=== PATIENT | female | born 1990 | race African-American/Black ===

== ENCOUNTER 2022-07-13 13:40 | Inpatient (IN) ==
[2022-07-13] MEDS ORDERED: LIDOCAINE 1% LOCAL 20 ML VIAL INFIL PRN (13:52)
[2022-07-13] MEDS ORDERED: OXYTOCIN 30 UNITS/500 ML BAG IV PRN ×2 (13:52)
[2022-07-13] MEDS ORDERED: PENICILLIN G POTASSIUM 6 MU in DEXTROSE 5% 250 ML IV STA (13:52)
--- NOTE | 2022-07-13 13:58 | History & Physical Report ---
Date of Service July 13, 2022 Assessment & Plan (1) SROM (spontaneous rupture of membranes): Plan: Counseled on recommendation for pitocin vs expt mgmt for a few hours to see if labor develops. Risks/benefits reviewed. Patient does not want to augment until FOB arrives from [place] where he is currently located. GBS positive noted, will start PCN. GDM has been diet controlled. May want epidural, will let us know when/if she is ready to request one. History of Present Illness Chief Complaint: 32yo P1 at 38w2d with SROM at 0730 this AM, arrives to L&D via ER with her MIL. Onset of contractions in the last hour but not organized or painful yet. Good FM, no VB, fluid is clear. GBS positive known. Also h/o MJ use and smoking, GBS diet controlled, last growth US reviewed. FOB in [place] and she declines intervention to augment her contractions until he arrives. Primary Care Provider: NO PCP Allergies Allergy/AdvReac Type Severity Reaction Status Date / Time No Known Allergies Allergy Verified 07/05/22 16:00 Home Medications Medication Instructions Recorded Confirmed Type prenat.vits,jerrell,hdf-plaf-sxtoa 1 tab PO DAILY #90 tabs 02/24/22 07/05/22 Rx sertraline 25 mg tablet (Zoloft) 25 mg PO DAILY #30 tabs 02/24/22 07/05/22 Rx acetone (urine) test (Ketone Urine #50 ea 03/25/22 07/05/22 Rx Test strips) blood sugar diagnostic (OneTouch #150 ea 03/25/22 07/05/22 Rx Verio test strips) blood-glucose meter (OneTouch #1 ea 03/25/22 07/05/22 Rx Verio Reflect Meter) lancets 33 gauge (OneTouch Delica #150 ea 03/25/22 07/05/22 Rx Lancets) metronidazole 0.75 % (37.5 mg/5 1 appful vaginal DAILY 5 days #70 03/26/22 07/05/22 Rx gram) vaginal gel grams ondansetron HCl 4 mg tablet 4 mg PO Q6H PRN nausea and 04/14/22 07/05/22 Rx vomiting #20 tabs clotrimazole 1 % vaginal cream 1 appful vaginal ONCE 7 days #45 06/21/22 07/05/22 Rx grams Patient History Medical History (Updated 07/13/22 @ 13:57 by Melita Steele MD) Depression with anxiety Miscarriage Status post elective Surgical History (Updated 02/22/22 @ 14:29 by Jelly Zuniga) S/P wisdom tooth extraction Family History (Updated 02/22/22 @ 14:19 by Jelly Zuniga) Mother Diabetes Grandmother (Maternal) Heart disease Denies family history of Ovarian cancer Breast cancer Colorectal cancer Social History (Updated 02/22/22 @ 14:20 by Jelly Zuniga) Smoking Status: Current some day smoker Hx Substance Use: Yes marital status: Single marital status details: dominique Hansen (37) [phone] Current Living Situation: Family and Significant Other Current Living Situation Comment: lives with fob, son, no pets current occupational status: unemployed Physical Exam Genitourinary: FHT Cat 1, [place] irregular / rare ctx, Cvx 1/80/-2/soft/post, LOF clear with +nitrazine Results & Data ([facility]) Vital Signs (Past 12 Hours) Vital Signs Pulse BP 07/13/22 13:50 113 H 136/69 Coding Level of Care Code None Diagnoses SROM (spontaneous rupture of membranes)
[2022-07-13 14:41] LABS: Hematocrit (blood only) 33.2 % (37.0-47.0); Hemoglobin 11.3 g/dl (12.0-16.0); Mean Corpuscular Hemoglobin 29.4 pg (25.0-34.0); Mean Corpuscular Volume 86.2 fL (80.0-100.0); Mean Platelet Volume 10.9 fL (9.4-12.4); Platelet Count 243 K/uL (130-400); RDW Coefficient of Variation 13.2 % (11.5-14.5); RDW Standard Deviation 41.1 fL (36.4-46.3); Red Blood Count 3.85 M/uL (4.20-5.40); White Blood Count 13.44 K/ul (4.8-10.8)
[2022-07-13] MEDS: LACTATED RINGER'S 1,000 ML IV PRN ×2 (14:58→19:36)
[2022-07-13 15:22] LABS: Amphetamines+Metham, Urine Neg (Neg); Barbiturates, Urine Neg (Neg); Benzodiazepine, Urine Neg (Neg); Cocaine, Urine Neg (Neg); MDMA (Ecstacy), Urine Neg (Neg); Methadone, Urine Neg (Neg); Opiate, Urine Neg (Neg); Phencyclidine, Urine Neg (Neg)
[2022-07-13] MEDS: PENICILLIN G POTASSIUM 3 MU in DEXTROSE 5% 100 ML IV PRN ×2 (19:03→22:59)
[2022-07-13] MEDS ORDERED: ePHEDrine sulfate 50 MG/ML AMP ONE (19:11)
[2022-07-13] MEDS ORDERED: BUPIVACAINE 0.25% 30 ML VIAL ONE (19:11)
[2022-07-13] MEDS ORDERED: SODIUM CHLORIDE 0.9% INJ 10 ML VIAL ONE (19:11)
[2022-07-13] MEDS ORDERED: LIDOCAINE 2%/EPINEPHRINE 1:200,000 20 ML SDV ONE (19:11)
[2022-07-13] MEDS ORDERED: fentaNYL citrate 100 MCG/2 ML VIAL ONE (19:11)
[2022-07-13] MEDS ORDERED: fentaNYL 2MCG/ML ROPIVACAINE 1.25MG/ML 100 ML BAG EPI ONE (19:12)
--- NOTE | 2022-07-13 20:16 | Anesthesiology Consultation ---
Date of Service July 13, 2022 Assessment & Plan (1) Encounter for pre-operative examination: Chart Review Chart Review: Acceptable Risk for Labor Epidural History Height/Weight Height: 5 ft 2 in Weight: 93.44 kg Allergies Allergy/AdvReac Type Severity Reaction Status Date / Time No Known Allergies Allergy Verified 07/05/22 16:00 Medications Home Medications Medication Instructions Recorded Confirmed Last Taken prenat.vits,jerrell,wad-kukk-havtv 1 tab PO DAILY #90 tabs 02/24/22 07/05/22 Unknown sertraline 25 mg tablet (Zoloft) 25 mg PO DAILY #30 tabs 02/24/22 07/05/22 Unknown acetone (urine) test (Ketone Urine #50 ea 03/25/22 07/05/22 Unknown Test strips) blood sugar diagnostic (OneTouch #150 ea 03/25/22 07/05/22 Unknown Verio test strips) blood-glucose meter (OneTouch #1 ea 03/25/22 07/05/22 Unknown Verio Reflect Meter) lancets 33 gauge (OneTouch Delica #150 ea 03/25/22 07/05/22 Unknown Lancets) metronidazole 0.75 % (37.5 mg/5 1 appful vaginal DAILY 5 days #70 03/26/22 07/05/22 Unknown gram) vaginal gel grams ondansetron HCl 4 mg tablet 4 mg PO Q6H PRN nausea and 04/14/22 07/05/22 Unknown vomiting #20 tabs clotrimazole 1 % vaginal cream 1 appful vaginal ONCE 7 days #45 06/21/22 07/05/22 Unknown grams Active Medications Generic Name Dose Route Start Last Admin Trade Name Freq PRN Reason Stop Dose Admin Penicillin G Potassium 3 mu/ 106 mls @ 100 mls/hr 07/13/22 16:52 07/13/22 19:03 Dextrose IV 07/23/22 16:51 100 mls/hr Q4H PRN Administration GBS(+) Until Delivery Lactated Ringer's 1,000 mls @ 125 mls/hr 07/13/22 13:52 07/13/22 19:36 Lr IV 07/15/22 13:51 125 mls/hr .Q8H PRN Administration L&D Protocol Protocol Oxytocin 30 units in 500 mls @ 5 mls/hr 07/13/22 13:52 07/13/22 18:15 Pitocin IV 07/15/22 13:51 0.3 units/hr .Q24H PRN 5 mls/hr Labor Induction/Augmentation Titration Protocol 0.3 UNITS/HR Past Medical History Medical History Depression with anxiety Miscarriage Status post elective Past Family History Family History Mother Diabetes Grandmother (Maternal) Heart disease Denies family history of Ovarian cancer Breast cancer Colorectal cancer Past Surgical History Surgical History S/P wisdom tooth extraction Social History Smoking Status: Current every day smoker tobacco type: cigarettes Smoking cigarettes per day: 4 Hx Alcohol Use: No Hx Substance Use: Yes substance use type: former substance user and marijuana Physical Exam Vital Signs Last Vital Signs Temp 36.7 C 07/13/22 19:38 Pulse 92 H 07/13/22 20:11 Resp 18 07/13/22 20:00 BP 115/66 07/13/22 19:06 Pulse Ox 97 07/13/22 20:11 O2 Del Method Room Air 07/13/22 19:38 Testing Laboratory Results 07/13/22 14:10 Blood Type B Positive 07/13/22 14:10 Antibody Screen NEGATIVE 07/13/22 14:10 07/13/22 15:31 POC Glucose 128 H
[2022-07-13] MEDS ORDERED: ONDANSETRON INJ 2 MG/ML 2 ML VIAL IV PRN (20:39)
[2022-07-13] MEDS ORDERED: ePHEDrine sulfate 50 MG/ML AMP IV PRN (20:39)
[2022-07-13] MEDS ORDERED: fentaNYL 2MCG/ML ROPIVACAINE 1.25MG/ML 100 ML BAG EPI PRN (20:39)
[2022-07-13] MEDS ORDERED: NALOXONE HCL 1 MG in SODIUM CHLORIDE 0.9% 1000ML 1,000 ML IV PRN (20:39)
[2022-07-13] MEDS ORDERED: NALOXONE HCL 0.4 MG/1 ML VIAL/CARP IV PRN (20:39)
--- NOTE | 2022-07-13 23:22 | Delivery Summary ---
Vaginal Delivery Summary Date of Service July 13, 2022 Vaginal Delivery Summary DIAGNOSES: 1. Peter intrauterine at 38w2d gestation. 2. PROM and Induction of Labor. 3. Group B Streptococcus Positive, treated. 4. Diet-controlled gestational diabetes PROCEDURE: Spontaneous vaginal delivery without laceration. SURGEON: Melita Steele MD. SEAM RUBBING MACHINE OPERATOR: None. ESTIMATED BLOOD LOSS: 300 mL. COMPLICATIONS: None. PLACENTA: Spontaneous and intact with a 3-vessel cord. DISPOSITION: Stable to labor and delivery. DESCRIPTION: The patient pushed well and brought the head to in DOA position. The 's head was allowed to deliver with contraction force and no further active pushing, with the perineum protected during this time. There was one tight nuchal cord, reduced at the perineum, while the patient continued delivering as the baby came rather quickly without much of a pause after the head delivered. The shoulders and body delivered without any difficulty, and the was placed on the maternal abdomen. It was vigorous and moving all extremities, and making respiratory efforts. The cord was doubly clamped by the MD and then cut by the FOB. The placenta delivered spontaneously and was noted to be intact and with a 3VC. The cervix, vagina and perineum were examined and were found to be without defect requiring repair. The fundus was firm and lochia minimal immediately after delivery. The bladder was emptied of approxi mately 300cc of clear yellow urine via sterile straight catheterization. [facility] Vaginal Delivery Charge Vaginal Delivery Codes: 92221 global code for the antepartum, delivery, and post-
[2022-07-14] MEDS ORDERED: bisacodyL 10 MG SUPP PR PRN (00:13)
[2022-07-14] MEDS ORDERED: DIPHTHERIA/TETANUS/PERTUSSIS 0.5mL SYR/VIAL (Age 7+yrs) IM ONE (00:13)
[2022-07-14] MEDS ORDERED: HYDROCORTISONE ACETATE 25 MG SUPP PR PRN (00:13)
[2022-07-14] MEDS ORDERED: oxyCODONE/ACETAMINOPHEN 5mg/325mg TAB PO PRN (00:13)
[2022-07-14] MEDS ORDERED: BENZOCAINE 20% AER SPR 82.5 GM CAN EXT PRN (00:13)
[2022-07-14] MEDS ORDERED: ACETAMINOPHEN 325 MG TAB PO PRN (00:13)
[2022-07-14] MEDS: IBUPROFEN 600 MG TAB PO PRN ×3 (01:17→18:15)
--- NOTE | 2022-07-14 05:43 | Obstetrical Progress Note ---
Date of Service <Misty Murdock MD - Last Filed: 07/14/22 06:24> July 14, 2022 Assessment & Plan <Misty Murdock MD - Last Filed: 07/14/22 06:24> (1) care following vaginal delivery: 32 y/o at 38w2d presented with SROM now PPD1 after . GBS pos - treated during labor. RI, Rh pos. Tolerating PO. Satisfactory post progress. Encourage ambulation. c/b GDM - diet controlled c/b MJ use and current smoking <Melita Steele MD - Last Filed: 07/14/22 07:17> (1) care following vaginal delivery: Plan Resident Physician Supervision Note: I interviewed and examined the patient. Discussed with Dr. Murdock and agree with findings and plan as documented in the note. Any exceptions or clarifications are listed here: [ ] Documented By: Melita Steele MD, FACOG Subjective <Misty Murdock MD - Last Filed: 07/14/22 06:24> Ambulation: ambulating normally Voiding: no voiding problems Passing Gas:: Yes Diet Tolerance:: regular diet Lochia:: Small Feeding Type:: breast feeding Physical Exam <Misty Murdock MD - Last Filed: 07/14/22 06:24> Gen: well appearing female in NAD HEENT: AT NC Resp: no increased work of breathing CV: clinically well perfused : uterus firm non-tender at the level of the umbilicus Psych: appropriate mood and affect Neuro: alert and oriented Results & Data ([facility]) <Misty Murdock MD - Last Filed: 07/14/22 06:24> Vital Signs (Past 12 Hours) Vital Signs Temp Pulse Pulse Resp BP BP Pulse Ox 07/14/22 02:50 36.1 C L 76 18 107/68 07/14/22 00:05 18 07/13/22 23:50 18 07/13/22 23:35 18 07/14/22 01:20 18 07/14/22 00:50 18 07/14/22 00:20 18 07/13/22 23:20 18 07/13/22 19:38 36.7 C 18 07/13/22 19:38 07/14/22 01:19 88 123/75 07/14/22 01:04 71 117/68 07/14/22 00:49 71 111/67 07/14/22 00:34 69 119/68 07/14/22 00:19 85 126/85 07/14/22 00:04 70 125/79 07/13/22 23:07 18 07/13/22 23:07 18 07/13/22 22:45 18 07/13/22 22:45 18 07/13/22 22:30 18 07/13/22 22:30 18 07/13/22 22:00 18 07/13/22 22:00 18 07/13/22 22:30 18 07/13/22 22:30 18 07/13/22 23:49 70 07/13/22 23:49 130/79 07/13/22 22:50 36.5 C 07/13/22 23:34 77 07/13/22 23:34 118/74 07/13/22 23:19 80 07/13/22 23:19 125/76 07/13/22 23:14 69 07/13/22 23:14 135/78 07/13/22 23:06 96 07/13/22 23:07 93 07/13/22 23:06 87 07/13/22 23:07 88 07/13/22 23:01 99 07/13/22 23:01 86 07/13/22 22:58 77 07/13/22 22:58 123/76 07/13/22 22:56 99 07/13/22 22:56 81 07/13/22 22:51 100 07/13/22 22:51 73 07/13/22 22:46 100 07/13/22 22:46 75 07/13/22 22:44 62 07/13/22 22:44 112/73 07/13/22 22:41 100 07/13/22 22:41 81 07/13/22 22:36 99 07/13/22 22:36 82 07/13/22 22:31 99 07/13/22 22:31 74 07/13/22 22:29 73 07/13/22 22:29 120/74 07/13/22 22:26 99 07/13/22 22:26 87 07/13/22 22:21 100 07/13/22 22:21 80 07/13/22 22:16 98 07/13/22 22:16 81 07/13/22 22:15 80 07/13/22 22:15 106/74 07/13/22 22:11 99 07/13/22 22:11 81 07/13/22 22:06 99 07/13/22 22:06 81 07/13/22 22:01 98 07/13/22 22:01 72 07/13/22 22:00 75 07/13/22 22:00 112/71 07/13/22 21:56 98 07/13/22 21:56 84 07/13/22 21:51 99 07/13/22 21:51 74 07/13/22 21:46 98 07/13/22 21:46 76 07/13/22 21:43 68 07/13/22 21:43 105/59 L 07/13/22 21:30 18 07/13/22 21:30 18 07/13/22 21:41 97 07/13/22 21:41 68 07/13/22 21:36 97 07/13/22 21:36 66 07/13/22 21:31 98 07/13/22 21:31 65 07/13/22 21:28 76 07/13/22 21:28 100/59 L 07/13/22 21:26 97 07/13/22 21:26 67 07/13/22 21:21 97 07/13/22 21:21 65 07/13/22 21:00 18 07/13/22 21:00 18 07/13/22 21:16 98 07/13/22 21:16 67 07/13/22 21:13 65 07/13/22 21:13 104/60 07/13/22 21:11 98 07/13/22 21:11 72 07/13/22 21:06 98 07/13/22 21:06 76 07/13/22 21:01 98 07/13/22 21:01 78 07/13/22 20:40 18 07/13/22 20:40 36.5 C 18 07/13/22 20:58 83 07/13/22 20:58 109/57 L 07/13/22 20:56 99 07/13/22 20:56 75 07/13/22 20:51 97 07/13/22 20:51 80 07/13/22 20:46 98 07/13/22 20:46 80 07/13/22 20:42 84 07/13/22 20:42 118/55 L 07/13/22 20:41 96 07/13/22 20:41 91 H 07/13/22 20:41 125/57 L 07/13/22 20:38 106 H 07/13/22 20:38 132/62 07/13/22 20:36 98 07/13/22 20:36 75 07/13/22 20:36 103/57 L 07/13/22 20:35 82 07/13/22 20:35 122/64 07/13/22 20:31 99 07/13/22 20:31 88 07/13/22 20:30 94 H 07/13/22 20:30 112/76 07/13/22 20:28 87 07/13/22 20:28 132/87 07/13/22 20:26 99 07/13/22 20:26 90 07/13/22 20:21 100 07/13/22 20:21 104 H 07/13/22 20:16 99 07/13/22 20:16 91 H 07/13/22 20:11 97 07/13/22 20:11 92 H 07/13/22 20:00 18 07/13/22 20:00 18 07/13/22 20:06 97 07/13/22 20:06 88 07/13/22 20:01 97 07/13/22 20:01 84 07/13/22 19:56 97 07/13/22 19:56 95 H 07/13/22 19:51 97 07/13/22 19:51 89 07/13/22 19:30 18 07/13/22 19:30 18 07/13/22 19:46 97 07/13/22 19:46 94 H 07/13/22 19:41 97 07/13/22 19:41 102 H 07/13/22 19:36 95 07/13/22 19:36 101 H 07/13/22 19:31 96 07/13/22 19:31 80 07/13/22 19:06 20 07/13/22 19:06 36.7 C 20 07/13/22 18:50 20 07/13/22 18:50 20 07/13/22 19:06 89 07/13/22 19:06 115/66 07/13/22 18:30 20 07/13/22 18:30 20 07/13/22 18:00 18 07/13/22 18:00 18 O2 Del Method 07/14/22 02:50 Room Air 07/14/22 00:05 07/13/22 23:50 07/13/22 23:35 07/14/22 01:20 07/14/22 00:50 07/14/22 00:20 07/13/22 23:20 07/13/22 19:38 07/13/22 19:38 Room Air 07/14/22 01:19 07/14/22 01:04 07/14/22 00:49 07/14/22 00:34 07/14/22 00:19 07/14/22 00:04 07/13/22 23:07 07/13/22 23:07 07/13/22 22:45 07/13/22 22:45 07/13/22 22:30 07/13/22 22:30 07/13/22 22:00 07/13/22 22:00 07/13/22 22:30 07/13/22 22:30 07/13/22 23:49 07/13/22 23:49 07/13/22 22:50 07/13/22 23:34 07/13/22 23:34 07/13/22 23:19 07/13/22 23:19 07/13/22 23:14 07/13/22 23:14 07/13/22 23:06 07/13/22 23:07 07/13/22 23:06 07/13/22 23:07 07/13/22 23:01 07/13/22 23:01 07/13/22 22:58 07/13/22 22:58 07/13/22 22:56 07/13/22 22:56 07/13/22 22:51 07/13/22 22:51 07/13/22 22:46 07/13/22 22:46 07/13/22 22:44 07/13/22 22:44 07/13/22 22:41 07/13/22 22:41 07/13/22 22:36 07/13/22 22:36 07/13/22 22:31 07/13/22 22:31 07/13/22 22:29 07/13/22 22:29 07/13/22 22:26 07/13/22 22:26 07/13/22 22:21 07/13/22 22:21 07/13/22 22:16 07/13/22 22:16 07/13/22 22:15 07/13/22 22:15 07/13/22 22:11 07/13/22 22:11 07/13/22 22:06 07/13/22 22:06 07/13/22 22:01 07/13/22 22:01 07/13/22 22:00 07/13/22 22:00 07/13/22 21:56 07/13/22 21:56 07/13/22 21:51 07/13/22 21:51 07/13/22 21:46 07/13/22 21:46 07/13/22 21:43 07/13/22 21:43 07/13/22 21:30 07/13/22 21:30 07/13/22 21:41 07/13/22 21:41 07/13/22 21:36 07/13/22 21:36 07/13/22 21:31 07/13/22 21:31 07/13/22 21:28 07/13/22 21:28 07/13/22 21:26 07/13/22 21:26 07/13/22 21:21 07/13/22 21:21 07/13/22 21:00 07/13/22 21:00 07/13/22 21:16 07/13/22 21:16 07/13/22 21:13 07/13/22 21:13 07/13/22 21:11 07/13/22 21:11 07/13/22 21:06 07/13/22 21:06 07/13/22 21:01 07/13/22 21:01 07/13/22 20:40 07/13/22 20:40 07/13/22 20:58 07/13/22 20:58 07/13/22 20:56 07/13/22 20:56 07/13/22 20:51 07/13/22 20:51 07/13/22 20:46 07/13/22 20:46 07/13/22 20:42 07/13/22 20:42 07/13/22 20:41 07/13/22 20:41 07/13/22 20:41 07/13/22 20:38 07/13/22 20:38 07/13/22 20:36 07/13/22 20:36 07/13/22 20:36 07/13/22 20:35 07/13/22 20:35 07/13/22 20:31 07/13/22 20:31 07/13/22 20:30 07/13/22 20:30 07/13/22 20:28 07/13/22 20:28 07/13/22 20:26 07/13/22 20:26 07/13/22 20:21 07/13/22 20:21 07/13/22 20:16 07/13/22 20:16 07/13/22 20:11 07/13/22 20:11 07/13/22 20:00 07/13/22 20:00 07/13/22 20:06 07/13/22 20:06 07/13/22 20:01 07/13/22 20:01 07/13/22 19:56 07/13/22 19:56 07/13/22 19:51 07/13/22 19:51 07/13/22 19:30 07/13/22 19:30 07/13/22 19:46 07/13/22 19:46 07/13/22 19:41 07/13/22 19:41 07/13/22 19:36 07/13/22 19:36 07/13/22 19:31 07/13/22 19:31 07/13/22 19:06 07/13/22 19:06 07/13/22 18:50 07/13/22 18:50 07/13/22 19:06 07/13/22 19:06 07/13/22 18:30 07/13/22 18:30 07/13/22 18:00 07/13/22 18:00 Laboratory Results 07/13/22 14:10 Resident Activity Tracking <Misty Murdock MD - Last Filed: 07/14/22 06:24> Resident Involvement: Resident Care Provided Care Provided: OB Delivery
[2022-07-14 07:11] LABS: Hematocrit (blood only) 32.2 % (37.0-47.0); Hemoglobin 10.8 g/dl (12.0-16.0); Mean Corpuscular Hemoglobin 28.9 pg (25.0-34.0); Mean Corpuscular Hgb Conc 33.5 g/dL (32.0-36.0); Mean Corpuscular Volume 86.1 fL (80.0-100.0); Mean Platelet Volume 10.7 fL (9.4-12.4); Platelet Count 217 K/uL (130-400); RDW Coefficient of Variation 13.2 % (11.5-14.5); RDW Standard Deviation 41.1 fL (36.4-46.3); Red Blood Count 3.74 M/uL (4.20-5.40); White Blood Count 14.98 K/ul (4.8-10.8)
[2022-07-14] MEDS: PRENATAL VITAMIN 1 TAB PO SCH (08:30)
[2022-07-14] MEDS: DOCUSATE SODIUM 100 MG CAP PO SCH ×2 (08:30→21:23)
--- NOTE | 2022-07-14 08:50 | Anesthesia Procedure Note ---
Date of Service July 14, 2022 Anesthesia Post Epidural Note Vital Signs Vital Signs: Temp Pulse Resp BP Pulse Ox O2 Del Method 36.6 C 73 20 104/65 93 Room Air 07/14/22 08:25 07/14/22 08:25 07/14/22 08:25 07/14/22 08:25 07/13/22 23:07 07/14/22 02:50 Pain Intensity Bilateral Abdomen: Pain Intensity: 5 Notes Mental Status: alert / awake / arousable and participated in evaluation Nausea / Vomiting: adequately controlled Pain: adequately controlled Airway Patency, RR, SpO2: stable & adequate BP & HR: stable & adequate Hydration State: stable & adequate Neuraxial Anesthesia: was administered and sensory block resolved Anesthetic Complications: no major complications apparent and Pt Satisfied with anesthetic care Epidural: Removed without complications and With tip intact
[2022-07-14] MEDS: SERTRALINE HCL 50 MG TABLET PO SCH (10:55)
[2022-07-14] MEDS ORDERED: bisacodyL 5 MG TABEC PO SCH (20:00)
[2022-07-15] MEDS: IBUPROFEN 600 MG TAB PO PRN (02:15)
--- NOTE | 2022-07-15 06:29 | Obstetrical Progress Note ---
Date of Service <Misty Murdock MD - Last Filed: 07/15/22 07:04> July 15, 2022 Assessment & Plan <Misty Murdock MD - Last Filed: 07/15/22 07:04> (1) care following vaginal delivery: 32 y/o at 38w2d presented with SROM now PPD2 after . GBS pos - treated during labor. RI, Rh pos. Tolerating PO. Satisfactory post progress. Encourage ambulation. c/b GDM - diet controlled c/b MJ use and current smoking <Jose Canas MD - Last Filed: 07/15/22 08:21> (1) care following vaginal delivery: Subjective <Misty Murdock MD - Last Filed: 07/15/22 07:04> Ambulation: ambulating normally Voiding: no voiding problems Passing Gas:: Yes Diet Tolerance:: regular diet Lochia:: Small Feeding Type:: breast feeding Physical Exam <Misty Murdock MD - Last Filed: 07/15/22 07:04> Gen: well appearing female in NAD HEENT: AT NC Resp: no increased work of breathing CV: clinically well perfused, no calf tenderness : uterus firm non-tender at the level of the umbilicus Psych: appropriate mood and affect Neuro: alert and oriented Results & Data ([facility]) <Misty Murdock MD - Last Filed: 07/15/22 07:04> Vital Signs (Past 12 Hours) Vital Signs Temp Pulse Resp BP Pulse Ox O2 Del Method 07/14/22 23:35 36.3 C L 74 18 115/77 100 Room Air 07/14/22 20:00 36.7 C 73 18 119/72 97 Room Air <Jose Canas MD - Last Filed: 07/15/22 08:21> Co-Signing Physician Notes patient seen and evaluated and agree with the findings and plan. Stable for discharge. Resident Activity Tracking <Misty Murdock MD - Last Filed: 07/15/22 07:04> Resident Involvement: Resident Care Provided Care Provided: OB Delivery
[2022-07-15 06:53] LABS: Hematocrit (blood only) 30.4 % (37.0-47.0); Hemoglobin 10.2 g/dl (12.0-16.0)
[2022-07-15] MEDS: SERTRALINE HCL 50 MG TABLET PO SCH (08:56)
[2022-07-15] MEDS: DOCUSATE SODIUM 100 MG CAP PO SCH (08:57)
[2022-07-15] MEDS: PRENATAL VITAMIN 1 TAB PO SCH (09:10)
[2022-07-15 19:41] LABS: Marijuana Quant, GCMS Urine 472 ng/mL (<5)
== END 2022-07-15 14:45 | disposition home or self-care (01) | DRG 807 ==
LOC: OPB 13:40 → 4S1 13:42 → 4E2 07-14 02:30